=== PATIENT | female | born 1955 | race Caucasian/White ===

== ENCOUNTER → 2017-05-04 | Outpatient (CLI) | payer OTHER ==
[~2017-05-04] MED LIST: FOLIC ACID 1 MG1 MG PO; LEVEMIR100 UNIT/1 SC; NOVOLOG 10100 UNITS/ SC; THERAGRAN TAB1 EA PO; VITAMIN B-12100 MC1 PO; VITAMIN B-625 MG PO; XARELTO 15 MG T15 MG PO; XARELTO20 MG PO; ZESTRIL10 MG PO
[2017-05-04 10:55] LABS: HEMOGLOBIN 12.3 gm/dl (12.3-15.3); RED BLOOD COUNT 4.18 M/UL (4.00-5.10); WHITE BLOOD COUNT 6.6 K/UL (4.5-11.0)
== END ==
LOC: LAB 10:20
PROVIDERS: Nurse Practitioner Family
DX: E11.9 Type 2 diabetes mellitus without complications (principal); E78.5 Hyperlipidemia, unspecified; E83.42 Hypomagnesemia
CPT/HCPCS: 36415; 80053; 80061; 82043; 82570; 83735; 84439; 84443; 85025

== ENCOUNTER → 2017-05-06 | Outpatient (CLI) | payer OTHER ==
[~2017-05-06] VITALS: Ht 162.6 cm; Wt 90.7 kg
== END ==
LOC: OPSV 10:18
DX: E83.42 Hypomagnesemia (principal)
CPT/HCPCS: 96365; 96366

== ENCOUNTER → 2017-05-11 | Outpatient (CLI) | payer OTHER | LOC: LAB 08:39 → US 09:00 | DX: R19.00 Intra-abdominal and pelvic swelling, mass and lump, unspecified site (principal); E83.42 Hypomagnesemia | CPT/HCPCS: 36415; 76700; 83735 ==

== ENCOUNTER → 2017-05-15 | Outpatient (CLI) | payer OTHER ==
[~2017-05-15] VITALS: Ht 162.6 cm; Wt 90.7 kg
== END ==
LOC: OPSV 12:34
DX: E83.42 Hypomagnesemia (principal)
CPT/HCPCS: 96365; 96366

== ENCOUNTER → 2017-05-20 | Outpatient (CLI) | payer OTHER | LOC: LAB 11:10 | DX: E83.42 Hypomagnesemia (principal) | CPT/HCPCS: 36415; 83735 ==